=== PATIENT | female | born 1995 | race Two or more races ===

== ENCOUNTER 2017-01-18 05:45 | Emergency (ER) | payer OTHER ==
[~2017-01-18] VITALS: Ht 162.6 cm; Wt 48.5 kg
--- NOTE | 2017-01-18 06:06 | NUR ---
PT CAME INTO ER WITH POLICE WITH NO AGGRESSIVE BEHAVIORS. A/O X4 ABLE TO MAKE NEEDS KNOWN AND VERBALIZING SADNESS BUT NO INTENT TO HARM HERSELF OR OTHERS. PT HAS TACHYPNEA WITH NO SIGNS OF NEEDING OXYGEN. VITALS ARE WNL. WILL CONTINUE TO MONITOR FOR ANY CHANGES DURING THE SHIFT.
--- NOTE | 2017-01-18 06:08 | NUR ---
BLOOD SUGAR IS 364. MD GROSS MADE AWARE
--- NOTE | 2017-01-18 06:10 | NUR ---
PATIENT IS STABLE IN ROOM. POLICE NEAR ROOM
--- NOTE | 2017-01-18 06:28 | NUR ---
PATIENT IN STABLE CONDITION. NO SOB NOTED. VITALS WNL. ORDERS CARRIED OUT. OKAY TO BOOK BY POLICE. LEFT WITH NO DISTRESS NOTED.
[2017-01-18 06:31] VITALS: BP 130/82
== END 2017-01-18 06:33 ==
LOC: ER 05:46
DX: E11.65 Type 2 diabetes mellitus with hyperglycemia (principal); Z79.4 Long term (current) use of insulin
CPT/HCPCS: 82962; 99283; A4606; Z7610